=== PATIENT | female | born 1985 | race African-American/Black ===

== ENCOUNTER 2017-02-10 15:56 | Emergency (ER) | payer SELFPAY ==
[~2017-02-10] VITALS: Ht 167.6 cm; Wt 68.2 kg
[2017-02-10 15:58] VITALS: TEMP 99.2
[2017-02-10 16:37] LABS: PH 5 (5-8); URINE APPEARANCE Clear; URINE BACTERIA None Seen /hpf; URINE BILIRUBIN Negative (NEGATIVE); URINE BLOOD 1+ (NEGATIVE); URINE COLOR Yellow; URINE GLUCOSE Negative (NEGATIVE); URINE KETONE Trace (NEGATIVE); URINE WBC 0-2 /hpf
[2017-02-10 16:42] LABS: MEAN CELL VOLUME 92 fl (80.0-100.0); MEAN CORPUSCULAR HGB CONC 34 g/dl (33.0-37.0); MEAN PLATELET VOLUME 12.1 fl (7.4-10.4); PLATELET COUNT 210 K/mm3 (130-400); RED BLOOD COUNT 3.32 M/mm3 (4.10-5.30); REDCELL DISTRIBUTION WIDTH-CV 12.4 % (11.5-14.5); WHITE BLOOD COUNT 6.8 K/mm3 (4.8-10.8)
[2017-02-10 16:45] LABS: ADD PATHOLOGY DIFF REVIEW NO; HEMATOCRIT 30.5 % (37.0-47.0); HEMOGLOBIN 10.4 g/dl (12.5-16.0); MEAN CORPUSCULAR HEMOGLOBIN 31 pg (27.0-31.0)
[2017-02-10] MEDS ORDERED: PROVERA 10MG10 MG PO (17:00)
[2017-02-10 17:17] VITALS: BP 121/77; PULSE 93
[2017-02-10 17:27] LABS: BAND 5 % (0-10); EOSINOPHIL 1 % (0-4); NEUTROPHILS 57 % (42.0-75.2); TOTAL CELLS COUNTED 100
[2017-02-10 17:28] LABS: PLATELET ESTIMATE NORMAL (NORMAL)
[2017-02-11 00:21] LABS: CHLAMYDIA/TRACH by PCR Female NOT DETECTED; NEISSERIA GON by PCR Female NOT DETECTED
== END 2017-02-10 17:20 | disposition home or self-care (01) ==
LOC: COL.ER 15:56
PROVIDERS: Emergency Medicine
DX: N93.9 Abnormal uterine and vaginal bleeding, unspecified (principal)